=== PATIENT | female | born 1985 | race Caucasian/White ===

== ENCOUNTER 2019-02-04 16:06 | Emergency (ER) | payer OTHER ==
[~2019-02-04] VITALS: Ht 154.9 cm; Wt 59.9 kg
[~2019-02-04 16:06] MED LIST: MEDROLPACK PO; ZYRTEC10 MG PO
== END 2019-02-04 21:28 | disposition home or self-care (01) ==
LOC: ER 16:06
DX: B34.9 Viral infection, unspecified (principal)

== ENCOUNTER 2019-03-15 09:32 | Emergency (ER) | payer OTHER ==
[~2019-03-15] VITALS: Ht 154.9 cm; Wt 71.2 kg
[2019-03-16] MEDS ORDERED: CARAFATE1 GM PO (14:35)
[2019-03-16] MEDS ORDERED: PEPCID AC20 MG PO (14:35)
[2019-03-16] MEDS ORDERED: METOCLOPRAMIDE10 MG SL (14:35)
== END 2019-03-15 13:02 | disposition home or self-care (01) ==
LOC: ER 09:32
DX: K52.9 Noninfective gastroenteritis and colitis, unspecified (principal)

== ENCOUNTER 2019-03-16 10:59 | Emergency (ER) | payer OTHER ==
[~2019-03-16] VITALS: Ht 154.9 cm; Wt 71.2 kg
[2019-03-16] MEDS ORDERED: CARAFATE1 GM PO (14:35)
[2019-03-16] MEDS ORDERED: METOCLOPRAMIDE10 MG SL (14:35)
[2019-03-16] MEDS ORDERED: PEPCID AC20 MG PO (14:35)
== END 2019-03-16 14:44 | disposition home or self-care (01) ==
LOC: ER 10:59
DX: K29.70 Gastritis, unspecified, without bleeding (principal)